=== PATIENT | female | born 1950 | race Caucasian/White ===

== ENCOUNTER 2024-08-19 16:55 | Emergency (ER) | payer OTHER, SELFPAY ==
[2024-08-19 17:04] VITALS: BP 154/88
[2024-08-19 17:40] LABS: % Basophils 0.4 % (0-2); % Eosinophils 1.7 % (0-6); % Immature Granulocytes 0.2 % (0-0.5); % Lymphocytes 29.3 % (20.5-51.1); % Monocytes 8.1 % (1.7-9.3); % Neutrophils 60.3 % (42.2-75.2); Absolute Eosinophils 0.1 10^3/uL (0-0.7); Absolute Lymphocytes 2.4 10^3/uL (1.2-3.4); Absolute Monocytes 0.7 10^3/uL (0.1-0.6); Absolute Neutrophils 4.8 10^3/uL (1.4-6.5); Hematocrit 41.8 % (37.0-47.0); Hemoglobin 14.8 g/dL (12.0-16.0); Mean Corp Hgb Conc. 35.4 g/dL (33.0-37.0); Mean Corpuscular Hgb 32.2 pg (27.0-31.0); Mean Corpuscular Volume 91.1 fL (81.0-99.0); Mean Platelet Volume 9.1 fL (7.4-10.4); Nucleated Red Blood Cells % 0 %; Platelet Count 218 10^3/uL (130-400); Red Blood Cell Count 4.59 10^6/uL (4.20-5.40); Red Cell Dist. Width 12.3 % (11.5-14.5)
[2024-08-19 17:53] LABS: ALT (SGPT) 34 U/L (0-35); AST (SGOT) 38 U/L (14-36); Albumin 4.7 g/dl (3.5-5.0); Alkaline Phosphatase 80 U/L (38-126); Blood Urea Nitrogen 22 mg/dl (7-17); Calcium 10.3 mg/dl (8.4-10.2); Carbon Dioxide 27 mmol/L (22-30); Chloride 103 mmol/L (98-107); Glucose 137 mg/dl (70-99); Potassium 3.7 mmol/L (3.5-5.1); Sodium 139 mmol/L (135-145); Total Bilirubin 0.6 mg/dl (0.2-1.3); Total Protein 7.2 g/dl (6.3-8.2); eGFR > 60.00
--- NOTE | 2024-08-19 17:56 | ED.GENMED ---
History of Present Illness
General
Chief Complaint: Chest Pain
Source: patient and spouse
Exam Limitations: none
Time Seen by Provider: 08/19/24 17:55
History of Present Illness
History of Present Illness:
Patient woke at about 7 AM this morning with shortness of breath and chest tightness. Persisted throughout the morning. Took a clonazepam. Was able to sleep at around noon but then symptoms recurred this afternoon. Moderately improved at this
time. No pleuritic pain. Some mild cough nausea at home. No back pain
Past History
Past History
ED Past Medical History: GERD, HTN, Hypercholesterolemia, Psychiatric (Anxiety) and Other (PE, UTI, Ulcers, Vertico)
ED Past Surgical History: Orthopedic (Back surgery), Tonsilectomy and Other (Hemorrhoidectomy)
Social History
Tobacco: Non-smoker
Alcohol: None
Personal:
Living: with family
Review of Systems
Review of Systems
All Other Systems: Not applicable
Constitutional: Denies fever
Cardiac: Denies palpitations or syncope
ABD/GI: Denies abdominal pain
Phy Exam
Physical Exam
Physical Exam:
GENERAL: Alert and oriented in no apparent distress
EYE: Orbits normal.
NECK: Supple. No thyroid palpable
ENT: Pharynx without erythema
CARDIAC: Regular rate and rhythm without any obvious murmurs.
LUNGS: Clear breath sounds,normal
ABDOMEN: Soft, without focal tenderness or distention
NEUROLOGICAL: Alert and oriented , grossly non-focal
SKIN: Warm and dry, no rash or lesion, no discoloration, skin intact.
MUSCULOSKELETAL: No edema,no deformity.Good color
PSYCH: Normal and appropriate interaction. Mildly anxious
Scores
Heart Score for Chest Pain Patients
STEMI patient?: No
History: Slightly or Non-Suspicious
ECG: Nonspecific Repolarization
Age: >/= 65 years
Risk Factors: 1 or 2 Risk Factors
Troponin: </= Normal Limit
Heart Score for Chest Pain Patients: 4
Heart Score Risk: 20.3% MACE over next 6 weeks
Course
Orders/Labs/Results
Orders:
Orders
08/19/24 16:56
EKG [Electrocardiogram (*1)] Urgent
Reason for Study: Chest Pain
EKG- Treatment ONCE
08/19/24 17:15
CR Chest - 2 Views Urgent
Comment:
Reason For Exam: respiratory distress
08/19/24 17:33
Complete Blood Count/With Diff Urgent
Comprehensive Metabolic Panel Urgent
NT-proBNP Urgent
Comment: ADDON
Troponin I Urgent
08/19/24 18:10
Add On- LAB Urgent
Tests Added?: probnp
08/19/24 18:11
CT Chest PE Study Urgent
Comment:
Reason For Exam: Short of breath/history of PE
Ondansetron Injectable [Zofran] 4 mg IV NOW STA
08/19/24 20:34
Electrocardiogram (*1) Urgent
Reason for Study: Chest Pain
EKG- Treatment ONCE
08/19/24 20:50
COVID-19 Antigen Urgent
Source: Nasal Swab
Troponin I Urgent
Influenza A+B Rapid Molecular Urgent
MONAE Source: Nasal Swab
Specimen Description:
Abnormal Lab Results
08/19/24
17:33
MCH 32.2 H pg
(27.0-31.0)
Absolute Monos (auto) 0.7 H 10^3/uL
(0.1-0.6)
BUN 22 H mg/dl
(7-17)
Glucose 137 H mg/dl
(70-99)
Calcium 10.3 H mg/dl
(8.4-10.2)
AST 38 H U/L
(14-36)
08/19/24 17:33
08/19/24 17:33
Vital Signs
Initial and Last Documented VS:
Initial Vital Signs
Temp Pulse Resp BP Pulse Ox
98.6 F 84 18 154/88 100
08/19/24 17:04 08/19/24 17:04 08/19/24 17:04 08/19/24 17:04 08/19/24 17:04
Last Documented Vital Signs
Temp Pulse Resp BP Pulse Ox
98.6 F 82 19 119/64 94
08/19/24 17:04 08/19/24 21:00 08/19/24 21:00 08/19/24 21:00 08/19/24 21:00
MDM/Problems Addressed
Differential Diagnosis Includes:
Patient with prolonged chest tightness throughout the day. Benign exam except for a few crackles in the base of the lungs. Clinically low suspicion for heart failure. EKG has nonspecific changes. Troponin is negative with prolonged symptoms.
For completeness we will repeat troponin and EKG at the 3-hour bear. Also with history of PE will get a chest CT. Patient and updated
*Radiology
Radiology exam reviewed: radiology read reviewed (Negative x-ray) and other (CT scan with groundglass appearance to the bases unchanged. No pulmonary emboli)
*Pulse Oximetry
Patient hypoxic: no
*EKG
Interpreted by ED Provider?: Yes
Interpretation: abnormal
Comparison EKG: changes noted
Heart Rate: 92
Rate: normal
Rhythm: sinus
[place]: normal axis
Interval: normal interval
QRS Pattern: normal QRS
Ischemia: non-specific ST changes
*Critical Care Note
Total Time (30-74mins, 75-104mins- exclusive of procedures): Not Applicable
Data Reviewed
Review of Other/Old Records Reveals: Labs, Records and Testing
Update Note
Update Note:
Patient is asymptomatic. Symptoms resolved. Tony EKG normal sinus rhythm first-degree block nonspecific changes. 2 negative troponins. No pulmonary emboli. Stable for discharge
ED Attending Note
-
Portions of this chart may have been created with voice recognition software.� Occasional wrong word or��sound alike� substitutions may have occurred due to the inherent limitations of voice recognition software.
Discharge Plan
Departure
Patient Disposition: Home (Routine Discharge)
Date of Disposition: 08/19/24
Time of Disposition: 22:02
Patient with high blood pressure during this ER visit?: No
Discharge Problem:
Dyspnea/chest pain
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
Prescriptions:
No Action
amoxicillin-pot clavulanate 875-125 mg tablet
1 tab PO BID Qty: 13 0RF
Antivert 50 mg tablet
50 mg PO BID PRN (Reason: dizziness) Qty: 10 0RF
sucralfate [Carafate] 1 gram tablet
1 g PO ACHS Qty: 30 0RF
prednisone 20 mg tablet
40 mg PO DAILY Qty: 6 0RF
albuterol sulfate [ProAir HFA] 90 mcg/actuation HFA aerosol inhaler
2 puff inhalation Q4HPRN PRN (Reason: shortness of breath) Qty: 8.5 0RF
Referrals:
Gal Barnes MD [Family Provider] - Follow up in 2-3 days
Activity Restrictions/Additional Instructions:
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
Interventions
Interventions:
*Risk Screen - Suicide Last Done: 08/19/24 17:59
*General Assessment Last Done: 08/19/24 17:59
*Neglect/Abuse Screening Last Done: 08/19/24 17:59
*ED- Fall Risk Assessment Last Done: 08/19/24 17:59
*ED COVID-19 Vaccine History Last Done: 08/19/24 17:59
ED- Cardiac Assessment Last Done: 08/19/24 17:58
Discharge Date and Time
Print Language: QATARI
[2024-08-19 18:18] LABS: Troponin I 0.012 ng/ml
[2024-08-19] MEDS: ZOFRAN 4 MG IV (18:31)
[2024-08-19 18:43] LABS: NT-proBNP 112 pg/ml
[2024-08-19 19:28] VITALS: BP 124/72
[2024-08-19 20:22] VITALS: BP 131/80
[2024-08-19 21:00] VITALS: BP 119/64
[2024-08-19 21:22] LABS: Troponin I < 0.012 ng/ml
[2024-08-19 21:25] LABS: COVID-19 Antigen Negative (Negative)
== END 2024-08-19 22:13 | disposition home or self-care (01) ==
LOC: EMR 16:55
PROVIDERS: Emergency Medicine; EMERGENCY PHYSICIAN Emergency Medicine; FAMILY PHYSICIAN Hospitalist
DX: R06.00 Dyspnea, unspecified (principal); K21.9 Gastro-esophageal reflux disease without esophagitis; I10 Essential (primary) hypertension; E78.00 Pure hypercholesterolemia, unspecified; F41.9 Anxiety disorder, unspecified; Z86.711 Personal history of pulmonary embolism; Z87.440 Personal history of urinary (tract) infections
CPT/HCPCS: 99284; 96374; 71046; 71275; 80053; 83880; 84484; 85025; 87502; 87811; 93005; Q9967

== ENCOUNTER 2024-10-08 20:52 | Emergency (ER) | payer OTHER, SELFPAY ==
[2024-10-08 20:52] VITALS: BMI 31.6
[2024-10-08 21:08] VITALS: BP 151/93
[2024-10-08 21:30] LABS: % Basophils 0.1 % (0-2); % Eosinophils 0.8 % (0-6); % Immature Granulocytes 0.4 % (0-0.5); % Monocytes 6.2 % (1.7-9.3); % Neutrophils 69.5 % (42.2-75.2); Absolute Eosinophils 0.1 10^3/uL (0-0.7); Absolute Lymphocytes 1.8 10^3/uL (1.2-3.4); Absolute Monocytes 0.5 10^3/uL (0.1-0.6); Absolute Neutrophils 5.5 10^3/uL (1.4-6.5); Hematocrit 39.6 % (37.0-47.0); Hemoglobin 13.9 g/dL (12.0-16.0); Mean Corp Hgb Conc. 35.1 g/dL (33.0-37.0); Mean Corpuscular Hgb 31.7 pg (27.0-31.0); Mean Corpuscular Volume 90.4 fL (81.0-99.0); Mean Platelet Volume 9.7 fL (7.4-10.4); Nucleated Red Blood Cells % 0 %; Platelet Count 196 10^3/uL (130-400); Red Blood Cell Count 4.38 10^6/uL (4.20-5.40); Red Cell Dist. Width 12.6 % (11.5-14.5); White Blood Cell Count 7.9 10^3/uL (4.8-10.8)
[2024-10-08 21:41] LABS: APTT 28.6 Sec (23.4-35.0)
[2024-10-08 21:48] LABS: ALT (SGPT) 33 U/L (0-35); AST (SGOT) 33 U/L (14-36); Albumin 4.3 g/dl (3.5-5.0); Alkaline Phosphatase 62 U/L (38-126); Blood Urea Nitrogen 19 mg/dl (7-17); Carbon Dioxide 24 mmol/L (22-30); Chloride 114 mmol/L (98-107); Glucose 119 mg/dl (70-99); Potassium 3.8 mmol/L (3.5-5.1); Sodium 145 mmol/L (135-145); Total Bilirubin 0.5 mg/dl (0.2-1.3); Total Protein 6.8 g/dl (6.3-8.2); eGFR 58.75
[2024-10-08 21:49] VITALS: BP 146/80
--- NOTE | 2024-10-08 21:49 | ED.GENMED ---
History of Present Illness
General
Chief Complaint: Cardiac Symptoms
Source: patient
Exam Limitations: none
Time Seen by Provider: 10/08/24 21:49
Nursing documentation reviewed up to this point in time: agreed with
History of Present Illness
History of Present Illness:
74-year-old female presents emergency department due to chest pressure and increased heart rate. She also describes shortness of breath. She does feel somewhat better at this time. She did not take her metoprolol yesterday. She did need today.
She also took Klonopin to help her anxiety.
Past History
Past History
ED Past Medical History: GERD, HTN, Hypercholesterolemia, Psychiatric (Anxiety) and Other (PE, UTI, Ulcers, Vertico)
ED Past Surgical History: Orthopedic (Back surgery), Tonsilectomy and Other (Hemorrhoidectomy)
Social History
Tobacco: Non-smoker
Alcohol: None
Personal:
Living: with family
Review of Systems
Review of Systems
Allergies reviewed?: Yes
All Other Systems: Not applicable
Constitutional: Reports no symptoms
EENT: Reports no symptoms
Respiratory: Reports trouble breathing
Cardiac: Reports palpitations
ABD/GI: Reports no symptoms
: Reports no symptoms
Musculoskeletal: Reports no symptoms
Skin: Reports no symptoms
Neurological: Reports no symptoms
Endocrine: Reports no symptoms
Hematologic/Lymphatic: Reports no symptoms
Psychiatric: Reports no symptoms
Phy Exam
Physical Exam
Physical Exam:
Physical Exam
General: no apparent distress, not acutely ill
Neck: supple. no meningeal signs. normal posterior pharynx
Heart: s1/s2 regular rate and rhythm, no murmur. equal radial
pulses.
HEENT: Pupils equal round reactive to light, EOMI
Lungs: no acute respiratory distress. clear bilaterally
Abdomen: normal bowel sounds. not tender. no CVAT
Neuro: alert and oriented. no focal neurological deficits cranial nerves II through XII intact
Skin: no rash
Psychiatric: well kept. interactive and cooperative
Extremities: no edema. no calf tenderness. negative homans. good distal pulses
1238
Course
Orders/Labs/Results
Orders:
Orders
10/08/24 20:52
Electrocardiogram (*1) Urgent
Reason for Study: Chest Pain
10/08/24 20:53
EKG- Treatment ONCE
10/08/24 21:11
CR Chest - 2 Views Urgent
Comment:
Reason For Exam: SOB
10/08/24 21:18
Complete Blood Count/With Diff Urgent
Comprehensive Metabolic Panel Urgent
NT-proBNP Urgent
PTT Urgent
Troponin I Urgent
10/08/24 22:37
D-Dimer Urgent
Abnormal Lab Results
10/08/24 10/08/24
21:18 22:37
MCH 31.7 H pg
(27.0-31.0)
D-Dimer 0.81 H ug/mlFEU
(0.00-0.50)
Chloride 114 H mmol/L
(98-107)
BUN 19 H mg/dl
(7-17)
Glucose 119 H mg/dl
(70-99)
10/08/24 21:18
10/08/24 21:18
Vital Signs
Initial and Last Documented VS:
Initial Vital Signs
Temp Pulse Resp BP Pulse Ox
98.0 F 98 22 151/93 95
10/08/24 21:08 10/08/24 21:08 10/08/24 21:08 10/08/24 21:08 10/08/24 21:08
Last Documented Vital Signs
Temp Pulse Resp BP Pulse Ox
98.0 F 76 24 107/70 96
10/08/24 21:08 10/09/24 00:00 10/09/24 00:00 10/09/24 00:00 10/09/24 00:00
MDM/Problems Addressed
Differential Diagnosis Includes:
ACS, PE
MDM/Problems Addressed:
74-year-old female with palpitations, age-adjusted D-dimer negative. Stable for discharge. Return precautions given.
Chronic conditions affecting care: Other (prior PE)
*Pulse Oximetry
Patient hypoxic: no
*EKG
Interpreted by ED Provider?: Yes
EKG Intrepretation Date: 10/08/24
EKG Intrepretation Time: 21:04
Interpretation: abnormal
Comparison EKG: no changes
Heart Rate: 90
Rate: normal
Rhythm: sinus
[place]: normal axis
Interval: normal interval
QRS Pattern: normal QRS
Ischemia: non-specific ST changes
*Barn Manager Interpretation
Rate: normal
Interpretation: normal
Heart Rate: 75
Rhythm: sinus
*Critical Care Note
Total Time (30-74mins, 75-104mins- exclusive of procedures): Not Applicable
Data Reviewed
Further Testing Considered But Not Given:
ct chest not indicated
Patient Management
Social determinants of health affecting care: Living situation and Strong social support
Escalation/DeEscalation of care consider admission/obs:
admit not indicated
ED Attending Note
-
Portions of this chart may have been created with voice recognition software.� Occasional wrong word or��sound alike� substitutions may have occurred due to the inherent limitations of voice recognition software.
Discharge Plan
Departure
Patient Disposition: Home (Routine Discharge)
Date of Disposition: 10/08/24
Time of Disposition: 23:43
Patient with high blood pressure during this ER visit?: Yes
Condition: Good
Discharge Problem:
Heart palpitations
Instructions: Palpitations
Prescriptions:
New
pantoprazole [Protonix] 40 mg tablet,delayed release (DR/EC)
40 mg PO DAILY Qty: 30 0RF
No Action
amoxicillin-pot clavulanate 875-125 mg tablet
1 tab PO BID Qty: 13 0RF
Antivert 50 mg tablet
50 mg PO BID PRN (Reason: dizziness) Qty: 10 0RF
sucralfate [Carafate] 1 gram tablet
1 g PO ACHS Qty: 30 0RF
prednisone 20 mg tablet
40 mg PO DAILY Qty: 6 0RF
albuterol sulfate [ProAir HFA] 90 mcg/actuation HFA aerosol inhaler
2 puff inhalation Q4HPRN PRN (Reason: shortness of breath) Qty: 8.5 0RF
Referrals:
Gal Barnes MD [Family Provider] - Call in 1-3 days for appt
Activity Restrictions/Additional Instructions:
Return for any concerns. Your primary care could possibly prescribe a medication for anxiety if he/she feels it is appropriate. Citalopram, duloxetine are possibilities, but discuss with your doctor.
Interventions
Interventions:
*General Assessment Last Done: 10/08/24 21:08
*ED- Fall Risk Assessment Last Done: 10/08/24 23:26
*ED COVID-19 Vaccine History Last Done: 10/08/24 23:26
*Nursing Disposition Last Done: 10/09/24 00:41
ED- Cardiac Assessment Last Done: 10/08/24 23:26
ED- Pulmonary Assessment Last Done: 10/08/24 23:26
Discharge Date and Time
Discharge Date/Time: 10/09/24 00:42
Print Language: JORDANIAN
[2024-10-08 21:56] LABS: NT-proBNP 136 pg/ml; Troponin I < 0.012 ng/ml
[2024-10-08 22:00] VITALS: BP 147/71
[2024-10-08 22:54] LABS: D-Dimer 0.81 ug/mlFEU (0.00-0.50)
[2024-10-08 23:25] VITALS: BP 129/59
[2024-10-09] VITALS: BP 107/70
== END 2024-10-09 00:42 | disposition home or self-care (01) ==
LOC: EMR 20:52
PROVIDERS: Student in an Organized Health Care Education/Training Program; EMERGENCY PHYSICIAN Emergency Medicine; FAMILY PHYSICIAN Hospitalist
DX: R00.2 Palpitations (principal); R07.89 Other chest pain; R06.02 Shortness of breath; F41.9 Anxiety disorder, unspecified; I10 Essential (primary) hypertension; E78.00 Pure hypercholesterolemia, unspecified; K21.9 Gastro-esophageal reflux disease without esophagitis; Z86.711 Personal history of pulmonary embolism; Z87.440 Personal history of urinary (tract) infections; Z86.16 Personal history of COVID-19; Z88.5 Allergy status to narcotic agent; Z88.8 Allergy status to other drugs, medicaments and biological substances
CPT/HCPCS: 99283; 71046; 80053; 83880; 84484; 85025; 85379; 85730; 93005

== ENCOUNTER 2025-05-12 18:47 | Emergency (ER) | payer OTHER, SELFPAY ==
[2025-05-12 18:52] VITALS: BP 173/92
--- NOTE | 2025-05-12 20:36 | ED.GENMED ---
History of Present Illness
General
Chief Complaint: Abdominal Symptoms
Time Seen by Provider: 05/12/25 20:17
History of Present Illness
History of Present Illness:
Patient is a 74-year-old woman presenting to the emergency room for low potassium. Patient states that she has had watery diarrhea for the past 3 weeks. She went to emergency department a few days ago was found to have a low potassium. She was
discharged. She then went back to an urgent care today given ongoing diarrhea. Check blood work and potassium normalized 2.9 today told her to come to the emergency department for further evaluation. No chest pain. No shortness of breath. No
lightheadedness dizziness. She has been having 2-3 episodes of diarrhea a day. It is nonbloody. She does state that she was on antibiotic around but stopped that after 3 days. No recent travel. No other antibiotics.
Past History
Past History
ED Past Medical History: GERD, HTN, Hypercholesterolemia, Psychiatric (Anxiety) and Other (PE, UTI, Ulcers, Vertico)
ED Past Surgical History: Orthopedic (Back surgery), Tonsilectomy and Other (Hemorrhoidectomy)
Social History
Tobacco: Non-smoker
Alcohol: None
Personal:
Living: with family
Phy Exam
Physical Exam
Physical Exam:
GENERAL: in no acute distress
HEENT: normocephalic, extraocular movements intact, moist oral mucosa
NECK: normal inspection
RESPIRATORY: no respiratory distress, clear to auscultation bilaterally
CARDIOVASCULAR: regular rate and rhythm
ABDOMEN/: soft, non-distended, non-tender to palpation, no rebound or guarding
EXTREMITIES: non-tender, no edema/swelling
NEUROLOGIC: awake and alert, moves all extremities
SKIN: warm
Course
Orders/Labs/Results
Orders:
Orders
05/12/25 18:55
Electrocardiogram (*1) Urgent
Reason for Study: Chest Pain
EKG- Treatment ONCE
05/12/25 20:35
STOOL [C difficile Antigen & Toxins] Urgent
MONAE Source: Feces/Stool
Specimen Description:
Stool Culture Urgent
MONAE Source: Feces/Stool
Specimen Description:
Stool For WBC Urgent
MONAE Source: Feces/Stool
Specimen Description:
Stool for Occult Blood Routine
05/12/25 21:16
Complete Blood Count/With Diff Urgent
05/12/25 21:52
Comprehensive Metabolic Panel Urgent
Magnesium Urgent
05/12/25 22:16
Potassium Chloride [KCl] 40 meq PO NOW STA
Abnormal Lab Results
05/12/25 05/12/25
21:16 21:52
RBC 4.09 L 10^6/uL
(4.20-5.40)
Hct 36.5 L %
(37.0-47.0)
MCH 31.3 H pg
(27.0-31.0)
Potassium 2.9 L mmol/L
(3.5-5.1)
Glucose 114 H mg/dl
(70-99)
05/12/25 21:16
05/12/25 21:52
Vital Signs
Initial and Last Documented VS:
Initial Vital Signs
Temp Pulse Resp BP Pulse Ox
98.2 F 108 16 173/92 99
05/12/25 18:52 05/12/25 18:52 05/12/25 18:52 05/12/25 18:52 05/12/25 18:52
Last Documented Vital Signs
Temp Pulse Resp BP Pulse Ox
98.2 F 77 17 152/81 99
05/12/25 18:52 05/12/25 22:15 05/12/25 22:15 05/12/25 21:00 05/12/25 20:38
MDM/Problems Addressed
Differential Diagnosis Includes:
Patient is a 74-year-old woman presenting to the emergency department with 3 weeks of ongoing diarrhea and low potassium on outside hospital labs. On arrival vitals unremarkable exam is reassuring. Will check blood work to check for hypokalemia.
Likely in setting of ongoing diarrhea. Given antibiotic use will also check C. difficile. Will send stool for culture. Abdomen soft nondistended nontender so we will hold off on n CT scan. Patient does appear well-hydrated on exam which is
reassuring. Also obtain EKG.
*Pulse Oximetry
SaO2: 99
Oxygen Mode of Delivery: Room air
Patient hypoxic: no
*Critical Care Note
Total Time (30-74mins, 75-104mins- exclusive of procedures): Not Applicable
Update Note
Update Note:
Blood work notable 2.9. Will replete. Patient without any further episodes of diarrhea. Patient advised to follow-up primary care doctor for stool culture as well as to get repeat blood work done to make sure potassium has improved especially
given ongoing diarrhea. Will discharge at this time.
ED Attending Note
-
Portions of this chart may have been created with voice recognition software.� Occasional wrong word or��sound alike� substitutions may have occurred due to the inherent limitations of voice recognition software.
Discharge Plan
Departure
Patient Disposition: Home (Routine Discharge)
Date of Disposition: 05/12/25
Time of Disposition: 22:26
Patient with high blood pressure during this ER visit?: Yes
Discharge Problem:
Hypokalemia
Instructions: Diarrhea in teens and adults
Prescriptions:
No Action
amoxicillin-pot clavulanate 875-125 mg tablet
1 tab PO BID Qty: 13 0RF
Antivert 50 mg tablet
50 mg PO BID PRN (Reason: dizziness) Qty: 10 0RF
sucralfate [Carafate] 1 gram tablet
1 g PO ACHS Qty: 30 0RF
prednisone 20 mg tablet
40 mg PO DAILY Qty: 6 0RF
albuterol sulfate [ProAir HFA] 90 mcg/actuation HFA aerosol inhaler
2 puff inhalation Q4HPRN PRN (Reason: shortness of breath) Qty: 8.5 0RF
pantoprazole [Protonix] 40 mg tablet,delayed release (DR/EC)
40 mg PO DAILY Qty: 30 0RF
Referrals:
Gal Barnes MD [Family Provider]
Activity Restrictions/Additional Instructions:
Thank You for choosing [facility].
It was a pleasure meeting you and taking part in your care.
You were seen in the Emergency Department today for low potassium and diarrhea. While you were here we performed blood work, which did show a low potassium. We did replete it. Please make sure you follow-up with your primary care doctor to have
repeat blood work done.
We would like for you to follow up with your primary care physician for further evaluation. If you experience fever, worsening of your symptoms, or develop any other new or concerning symptoms, please return to the Emergency Department immediately.
Please see the attached sheet for additional information.
Interventions
Interventions:
*Risk Screen - Suicide Last Done: 05/12/25 18:52
*General Assessment Last Done: 05/12/25 20:45
*Neglect/Abuse Screening Last Done: 05/12/25 18:52
*ED COVID-19 Vaccine History Last Done: 05/12/25 20:45
*ED Influenza Vaccine History Last Done: 05/12/25 20:45
[facility] Risk Assessment Tool Last Done: 05/12/25 20:45
LM-Mkacvl-[id number] Assessment Last Done: 05/12/25 20:45
Discharge Date and Time
Print Language: [id number]
[2025-05-12 20:45] VITALS: BMI 29.3
[2025-05-12 20:57] VITALS: BP 152/78
[2025-05-12 21:00] VITALS: BP 152/81
[2025-05-12 21:23] LABS: Hematocrit 36.5 % (37.0-47.0); Hemoglobin 12.8 g/dL (12.0-16.0); Mean Corp Hgb Conc. 35.1 g/dL (33.0-37.0); Mean Corpuscular Volume 89.2 fL (81.0-99.0); Nucleated Red Blood Cells % 0 %; Platelet Count 204 10^3/uL (130-400); Red Cell Dist. Width 12.6 % (11.5-14.5)
[2025-05-12 22:15] LABS: ALT (SGPT) 21 U/L (0-35); AST (SGOT) 26 U/L (14-36); Albumin 3.9 g/dl (3.5-5.0); Alkaline Phosphatase 41 U/L (38-126); Blood Urea Nitrogen 10 mg/dl (7-17); Calcium 9.3 mg/dl (8.4-10.2); Carbon Dioxide 25 mmol/L (22-30); Chloride 106 mmol/L (98-107); Estimated Creatinine Clearance 55 ml/min; Glucose 114 mg/dl (70-99); Magnesium 1.8 mg/dl (1.6-2.3); Potassium 2.9 mmol/L (3.5-5.1); Sodium 138 mmol/L (135-145); Total Protein 6.5 g/dl (6.3-8.2); eGFR > 60.00
[2025-05-12] MEDS: KCL 40 MEQ PO (22:41)
== END 2025-05-12 23:01 | disposition home or self-care (01) ==
LOC: EMR 18:47
PROVIDERS: Emergency Medicine; EMERGENCY PHYSICIAN Student in an Organized Health Care Education/Training Program; FAMILY PHYSICIAN Hospitalist
DX: E87.6 Hypokalemia (principal); I10 Essential (primary) hypertension; E78.00 Pure hypercholesterolemia, unspecified; K21.9 Gastro-esophageal reflux disease without esophagitis; F41.9 Anxiety disorder, unspecified
CPT/HCPCS: 99284; 80053; 83735; 85025; 93005